=== PATIENT | female | born 1990 | race Caucasian/White ===

== ENCOUNTER 2016-09-03 10:51 | Emergency (ER) | payer OTHER ==
--- NOTE | ~2016-09-03 | CR63 ---
[facility]. [facility] A Service of [facility] & [facility] RADIOLOGY TEXT RESULTS PATIENT: MADALYN SABILLON LOCATION: SED : 88 UNIT #: [id number] AGE: [address]: Torsten Sainz MD SEX: F ORDER DR: [id number] [address] [address] [id number] E MR#: [id number] Acc #: [id number] NAME: MADALYN SABILLON : 1990 SEX: F STUDY DATE/TIME: 09/03/2016 11:46 UNIT: SED ROOM: STUDY DESCRIPTION: CR Chest 2 View Attending Physician: Torsten Sainz M.D. Ordering Physician: Torsten Sainz M.D. Primary Care Physician: No Primary Care Physician MEDICAL IMAGING REPORT This report is preliminary unless electronic signature is present. EXAM 2-views chest 09/03/2016 HISTORY Cough. Kidney pain, back pain, nausea, dizzy. Cough 3-4 days duration. TECHNIQUE PA and lateral radiographs of the chest are presented. COMPARISON 10/01/2012. FINDINGS The heart and mediastinum are normal in size and configuration. The lungs are well-inflated. There is no indication of acute infectious or inflammatory disease, pleural effusion, or pneumothorax. No suspicious nodule. Visualized bowel gas pattern upper abdomen normal. Bony structures unremarkable. Dictated by... Aden Patiño M.D. THIS IS AN ELECTRONICALLY VERIFIED REPORT Aden Patiño M.D. at 09/05/2016 8:22 PM EDIL/perry TD: 09/03/2016 14:25 JOB #: [id number] MEDICAL IMAGING REPORT
[~2016-09-03 10:51] MED LIST: AMOXICILLIN875 MG PO; BACTRIM DS TABL1 TA1 PO; CELEXA; CELEXA20 MG PO; FLEXERIL; FLEXERIL10 MG; HYDROCODON-ACE1 EAC5 PO; IMITREX PO; IRON1 TA1 PO; KCL PO; LORTAB 5/500 TA1 TA1 PO; MACROBID 100 M100 MG PO; MACROBID100 MG PO; NO MEDICATIONS; PHENERGAN25 M1 PO; PRENATAL VITAMI1 TA6 PO; SUDAFED30 M1 PO; VICODIN 5/1 TAB 5/50 PO; VITAMIN D-32000 UNI1 PO; VOLTAREN75 MG PO; ZOFRAN ODT4 MG DOB; ZOFRAN ODT4 MG PO; ZOFRANODT PO
[2016-09-03 11:28] LABS: URINE SOURCE CLEAN CATCH
[2016-09-03 11:30] LABS: URINE APPEARANCE CLEAR; URINE BILIRUBIN NEG (NEG); URINE BLOOD NEG (NEG); URINE COLOR YELLOW; URINE GLUCOSE NEG (NORM); URINE KETONE NEG (NEG); URINE LEUKOCYTE ESTERASE 2+ (NEG); URINE NITRATE NEG (NEG); URINE PH 6.5 (5-8); URINE PROTEIN NEG (NEG); URINE SPECIFIC GRAVITY 1.015 (1.003-1.035); URINE UROBILINOGEN 0.2 MG/DL (NORM)
[2016-09-03 11:33] LABS: MICRO INDICATED? YES
[2016-09-03 11:41] LABS: CULTURE INDICATED? NO; URINE BACTERIA NEG (NEG); URINE RBC NEG /[HPF] (0-2); URINE SQUAMOUS EPITHELIAL CELL MODERATE /[HPF]; URINE WBC 0-2 /[HPF] (0-5)
[2016-10-29] MEDS ORDERED: WELLBUTRIN (12:02)
== END 2016-09-03 13:25 | disposition home or self-care (01) ==
LOC: SED 10:51
PROVIDERS: Emergency Medicine
DX: B34.9 Viral infection, unspecified (principal); F32.9 Major depressive disorder, single episode, unspecified; Z87.442 Personal history of urinary calculi; F17.200 Nicotine dependence, unspecified, uncomplicated
CPT/HCPCS: 71020; 81003; 84703; 99284

== ENCOUNTER 2016-10-29 12:34 | Emergency (ER) | payer OTHER ==
--- NOTE | ~2016-10-29 | CR58 ---
[facility]. [facility] A Service of [facility] & [facility] RADIOLOGY TEXT RESULTS PATIENT: MADALYN SABILLON LOCATION: SED : 89 UNIT #: [id number] AGE: [address]: Colt Dooley SEX: F ORDER DR: [id number] [address] [address] [id number] E MR#: [id number] Acc #: [id number] NAME: MADALYN SABILLON : 1990 SEX: F STUDY DATE/TIME: 10/29/2016 12:35 UNIT: SED ROOM: STUDY DESCRIPTION: CR Cervical Spine 2 or 3 Views Attending Physician: Clot Dooley P.A.-C. Referring Physician: Colt Dooley P.A.-C. Ordering Physician: Colt Dooley P.A.-C. Primary Care Physician: No Primary Care Physician MEDICAL IMAGING REPORT This report is preliminary unless electronic signature is present. EXAM Cervical spine, 3-view series. INDICATION Neck pain today after lifting child. FINDINGS AP, lateral, and odontoid views of the cervical spine were obtained. The vertebral bodies have normal alignment except for mild straightening of the spine. The disc spaces are normal. The soft tissues are normal. IMPRESSION There is straightening the cervical spine, otherwise the study appears normal. Dictated by... Prashanth Arevalo M.D. THIS IS AN ELECTRONICALLY VERIFIED REPORT Prashanth Arevalo M.D. at 10/29/2016 3:23 PM JESSIKA/rebecca TD: 10/29/2016 14:40 JOB #: [id number] MEDICAL IMAGING REPORT Page 1 of 1
[~2016-10-29 12:34] MED LIST changes: +WELLBUTRIN
== END 2016-10-29 13:48 | disposition home or self-care (01) ==
LOC: SED 12:34
DX: S16.1XXA Strain of muscle, fascia and tendon at neck level, initial encounter (principal); F32.9 Major depressive disorder, single episode, unspecified; F41.9 Anxiety disorder, unspecified; Z87.442 Personal history of urinary calculi; Z98.890 Other specified postprocedural states; X50.1XXA Overexertion from prolonged static or awkward postures, initial encounter; Y93.89 Activity, other specified; Y92.9 Unspecified place or not applicable
CPT/HCPCS: 72040; 99283

== ENCOUNTER 2016-11-04 11:52 | Emergency (ER) | payer OTHER ==
--- NOTE | ~2016-11-04 | US106 ---
[facility] A Service of [facility] & [facility] RADIOLOGY TEXT RESULTS PATIENT: MADALYN SABILLON LOCATION: SED : 89 UNIT #: [id number] AGE: [address]: Cash Rico MD SEX: F ORDER DR: [id number] [address] [address] [id number] E MR#: [id number] Acc #: [id number] NAME: MADALYN SABILLON : 1990 SEX: F STUDY DATE/TIME: 11/04/2016 12:58 UNIT: SED ROOM: STUDY DESCRIPTION: US Preg Uterus Transvaginal Attending Physician: Cash Rico M.D. Ordering Physician: Cash Rico M.D. Primary Care Physician: No Primary Care Physician MEDICAL IMAGING REPORT This report is preliminary unless electronic signature is present. EXAM Transvaginal early ultrasound 11/04/2016 HISTORY Spotting and cramping for 1 day. Beta HCG is 828. Transvaginal imaging was performed. FINDINGS The uterus is 4.7 x 9.1 x 5.3 cm. The endometrial tissue is about 8 mm in thickness. No definite gestational sac is visualized. There is a bright echo in the myometrium anteriorly. The right ovary is 2.1 x 2.8 x 2.9 cm and the left ovary is 1.6 x 1.8 x 2.1 cm and they can only be seen on transabdominal imaging. IMPRESSION The study is essentially normal. I do not see any evidence of an intrauterine or ectopic at this time. Dictated by... Prashanth Arevalo M.D. THIS IS AN ELECTRONICALLY VERIFIED REPORT Prashanth Arevalo M.D. at 11/05/2016 7:13 AM Denis TD: 11/04/2016 15:04 JOB #: [id number] MEDICAL IMAGING REPORT Page 1 of 1
[2016-11-04 11:27] LABS: URINE SOURCE CLEAN CATCH
[2016-11-04 11:30] LABS: URINE APPEARANCE CLEAR; URINE BILIRUBIN NEG (NEG); URINE BLOOD NEG (NEG); URINE COLOR YELLOW; URINE GLUCOSE NEG (NORM); URINE KETONE NEG (NEG); URINE LEUKOCYTE ESTERASE TRACE (NEG); URINE NITRATE NEG (NEG); URINE PH 6.5 (5-8); URINE PROTEIN NEG (NEG); URINE SPECIFIC GRAVITY 1.015 (1.003-1.035); URINE UROBILINOGEN 0.2 MG/DL (NORM)
[2016-11-04 11:31] LABS: MICRO INDICATED? YES
[2016-11-04 12:12] LABS: AMPHETAMINE NEG (NEG); BARBITURATES NEG (NEG); BENZODIAZEPINES NEG (NEG); COCAINE NEG (NEG); MARIJUANA NEG (NEG); OPIATES NEG (NEG); TRICYCLIC ANTIDEPRESSANTS NEG (NEG); U METHADONE NEG (NEG)
[2016-11-04 12:13] LABS: CULTURE INDICATED? YES; URINE BACTERIA 1+ (NEG); URINE RBC 0-2 /[HPF] (0-2); URINE SQUAMOUS EPITHELIAL CELL MANY /[HPF]
[2016-11-04 12:14] LABS: URINE MUCUS PRESENT
[2016-11-04 12:37] LABS: BASOPHIL% 0.4 % (0-2.5); EOSINOPHIL# 0.1 X10e3 (0-0.7); EOSINOPHIL% 1.4 % (0.0-7.0); LYMPHOCYTE# 2.1 X10e3 (1.0-3.5); LYMPHOCYTE% 21.2 % (17.0-45.0); MEAN CELL VOLUME 82.7 FL (83-96); MEAN CORPUSCULAR HEMOGLOBIN 27.5 PG (28-34); MEAN CORPUSCULAR HGB CONC 33.2 g/dL (30-36); MEAN PLATELET VOLUME 8.3 FL (6.5-11.5); MONOCYTE# 0.7 X10e3 (0-1.0); MONOCYTE% 7.1 % (3.0-12.0); NEUTROPHIL# 6.8 X10e3 (1.5-7.1); NEUTROPHIL% 69.9 % (40-75); PLATELET COUNT 237 X10e3 (140-420); RED BLOOD COUNT 4.72 X10e (3.90-5.30); RED CELL DISTRIBUTION WIDTH 12.7 % (11.0-15.5); WHITE BLOOD COUNT 9.8 X10e3 (4.0-10.5)
[2016-11-04 12:41] LABS: DIFF IND NO
[2016-11-04 12:56] LABS: BUN/CREATININE RATIO 8.75; CALCIUM SERUM 8.5 mg/dL (8.4-10.2); CREATININE SERUM 0.8 mg/dL (0.6-1.4); GLOM FILT RATE Estimated 101.1 mL/min (>60); POTASSIUM 3.2 mmol/L (3.5-5.1)
[2016-11-05 20:07] LABS: CHLAMYDIA TRACH Not Detected (Not Detected); N GONOR Not Detected (Not Detected)
== END 2016-11-04 14:01 | disposition home or self-care (01) ==
LOC: SED 11:52
PROVIDERS: Emergency Medicine
DX: O20.9 Hemorrhage in early pregnancy, unspecified (principal); Z67.91 Unspecified blood type, Rh negative
CPT/HCPCS: 36415; 76817; 80048; 80307; 81003; 84702; 84703; 85025; 86900; 86901; 87086; 87491; 87591; 87808; 87905; 99284

== ENCOUNTER 2017-01-11 14:56 | Emergency (ER) | payer OTHER ==
--- NOTE | ~2017-01-11 | CR126 ---
[facility]. [facility] A Service of [facility] & [facility] RADIOLOGY TEXT RESULTS PATIENT: MADALYN SABILLON LOCATION: SED : 89 UNIT #: [id number] AGE: [address]: Torsten Sainz MD SEX: F ORDER DR: [id number] [address] [address] [id number] E MR#: [id number] Acc #: [id number] NAME: MADALYN SABILLON : 1990 SEX: F STUDY DATE/TIME: 01/11/2017 15:48 UNIT: SED ROOM: STUDY DESCRIPTION: CR Foot Complete Min 3 View Lt Attending Physician: Torsten Sainz M.D. Ordering Physician: Torsten Sainz M.D. Primary Care Physician: Primary Care Physician No MEDICAL IMAGING REPORT This report is preliminary unless electronic signature is present. EXAM Left foot 3 views INDICATION Left foot pain today after falling. COMPARISON No comparisons. FINDINGS There is no evidence of fracture or dislocation. The soft tissue structures are unremarkable. IMPRESSION Negative. Dictated by... Shin Shelton M.D. THIS IS AN ELECTRONICALLY VERIFIED REPORT Shin Shelton M.D. at 01/13/2017 7:44 AM Satinder TD: 01/12/2017 08:08 JOB #: [id number] MEDICAL IMAGING REPORT Page 1 of 1
[2017-01-11] MEDS ORDERED: ZOFRANODT (15:07)
[2017-01-11] MEDS ORDERED: PRENATAL MULTI1 EAC3 (15:07)
== END 2017-01-11 16:54 | disposition home or self-care (01) ==
LOC: SED 14:56
DX: O9A.212 Injury, poisoning and certain other consequences of external causes complicating pregnancy, second trimester (principal); S96.912A Strain of unspecified muscle and tendon at ankle and foot level, left foot, initial encounter; S93.602A Unspecified sprain of left foot, initial encounter; F41.9 Anxiety disorder, unspecified; Z3A.16 16 weeks gestation of pregnancy; Z87.442 Personal history of urinary calculi; W01.0XXA Fall on same level from slipping, tripping and stumbling without subsequent striking against object, initial encounter; Y92.009 Unspecified place in unspecified non-institutional (private) residence as the place of occurrence of the external cause
CPT/HCPCS: 73630; 99283